=== PATIENT | female | born 1960 | race African-American/Black ===

== ENCOUNTER 2017-06-25 12:40 | Emergency (ER) | payer OTHER ==
[~2017-06-25] VITALS: Ht 162.6 cm; Wt 88.0 kg
[2017-06-25] MEDS ORDERED: IBUPROFEN 600MG TABLET PO ONE (15:00)
[2017-06-25 15:23] VITALS: BP 132/74
== END 2017-06-25 15:48 | disposition home or self-care (01) ==
LOC: ER 13:09
DX: M54.40 Lumbago with sciatica, unspecified side (principal); R03.0 Elevated blood-pressure reading, without diagnosis of hypertension
CPT/HCPCS: 99282

== ENCOUNTER 2018-12-10 16:10 | Emergency (ER) | payer MEDICAID, OTHER ==
[~2018-12-10] VITALS: Ht 162.6 cm; Wt 100.0 kg
[2018-12-10] MEDS ORDERED: ACETAMINOPHEN 325MG TABLET PO ONE (17:30)
[2018-12-10 17:42] VITALS: BP 139/60
== END 2018-12-10 17:49 | disposition home or self-care (01) ==
LOC: ER 16:10
DX: Z76.0 Encounter for issue of repeat prescription (principal); G89.29 Other chronic pain; M54.5 Low back pain
CPT/HCPCS: 99282; Z7610